=== PATIENT | female | born 1995 | race Caucasian/White ===

== ENCOUNTER 2016-08-06 22:17 | Emergency (ER) | payer OTHER ==
[2016-08-06 23:25] LABS: microscopic required? NO
[2016-08-06 23:32] LABS: urine erythrocyte NEGATIVE (NEGATIVE)
[2016-08-06 23:38] VITALS: BP 122/68
== END 2016-08-06 23:38 | disposition home or self-care (01) ==
LOC: ED 22:17
PROVIDERS: Specialist
DX: R30.0 Dysuria (principal); E66.9 Obesity, unspecified; Z90.49 Acquired absence of other specified parts of digestive tract